=== PATIENT | female | born 1950 | race African-American/Black ===

== ENCOUNTER 2017-07-06 08:49 | Emergency (ER) | payer MEDICARE, MEDICAID ==
[~2017-07-06] VITALS: Ht 167.6 cm; Wt 72.6 kg
[2017-07-06] MEDS ORDERED: AUGMENTIN 875-1 EAC1 ORAL (09:04)
[2017-07-06] MEDS ORDERED: Tetanus/Diptheria/Pertussis Vaccine 0.5ml Syr IM ONE (09:15)
[2017-07-06] MEDS ORDERED: Lidocaine 1% Plain 30 ml INJ ONE (09:15)
--- NOTE | 2017-07-06 09:45 | Emergency Room Report ---
History of Present Illness General Chief Complaint: Animal Bite Source: Patient Present Illness HPI 66-year-old female p/w laceration after a dog bit her. sustained when was walking this morning, neighbors or walking her Mal[place]ian granda, [place] Granda bit patient in left leg, unprovoked. Patient states that this is a domestic dog which she has seen many times, states that she is sure patient is up-to- date with repeats that she can go home and check to make sure. She has been ambulatory. no other complaints. Tdap is not up-to-date Allergies: Coded Allergies: No Known Allergies (Unverified , 07/06/17) Patient History Past Medical History: see triage record Past Surgical History: none Pertinent Family History: none Last Menstrual Period: menopause Reviewed Nursing Documentation: PMH: Agreed, PSxH: Agreed Nursing Documentation-PMH Past Medical History: No Stated History Review of Systems All Other Systems: negative except mentioned in HPI Physical Exam Vital Signs Date Time Temp Pulse Resp B/P (MAP) Pulse Ox O2 Delivery O2 Flow Rate FiO2 07/06/17 08:53 98.1 87 18 157/88 96 Room Air Sp02 EP Interpretation: reviewed, normal General Appearance: normal inspection, well appearing, no apparent distress, alert, GCS 15, non-toxic Head: normocephalic, atraumatic Eyes: bilateral eye normal inspection, bilateral eye PERRL, bilateral eye EOMI ENT: normal ENT inspection, normal pharynx, normal voice, moist mucus membranes Neck: normal inspection, full range of motion, supple Respiratory: normal inspection, lungs clear, normal breath sounds, no respiratory distress, no retraction, no wheezing, speaking full sentences, chest symmetrical Cardiovascular #1: normal inspection, regular rate, rhythm, no edema, normal capillary refill Cardiovascular #2: 2+ radial (R), 2+ radial (L) Gastrointestinal: normal inspection, non tender, soft, non-distended, no guarding Musculoskeletal: back normal, normal range of motion, non-tender, other - Left leg with 3 separate linear wound lacerations. Anterior has a 7 cm linear laceration, hind leg has 2 lacerations, one measuring 4 cm one measuring 8 cm Neurologic: normal inspection, alert, oriented x3, responsive, motor strength/ tone normal, sensory intact, normal gait, speech normal Psychiatric: normal inspection, judgement/insight normal, memory normal Skin: normal color, no rash, warm/dry, well hydrated, normal turgor Procedures Laceration/Wound Repair Laceration/Wound Repair : Consent: Verbal Wound Location: lower extremity Wound's Depth, Shape: superficial Wound Length (cm): 10 Wound Explored: clean Irrigated w/ Saline (ccs): 500 Betadine Prep?: Yes Anesthesia: 1% Lidocaine Volume Anesthetic (ccs): 10 Wound Repaired With: sutures Suture Size/Type: 4:0 Number of Sutures: 19 Layer Closure?: Yes Sterile Dressing Applied?: Yes Splint Applied?: No Sling Applied?: Yes Patient Tolerated: Well Complications: None Progress Patient had 4 separate linear lacerations. 2 in the posterior leg measuring 4 cm and 7 cm, also had one in the anterior leg which was 8 cm Medical Decision Making Diagnostic Impression: Primary Impression: Laceration Additional Impression: Dog bite of extremity ER Course 66-year-old female with dog bite sustained lacerations to left leg No rabies vaccine indicated, it is a domestic dog, her neighbors dog Plan Wound repair, Elieser to, discharged with antibiotics ER course: Laceration repaired, sterile dressing applied. Tdap given. Disposition: Patient will be discharged home. Patient instructed to take antibiotics Patient instructed to return to her primary care doctor in 3-4 days for wound recheck Strict return precautions discussed with patient such as fever, chills, increasing bleeding to site, purulent drainage, rapid swelling or redness to area. Patient verbalizes understanding. Patient sis informed of inevitable scar that will result from laceration despite repair. Pt instructed to avoid sun exposure to decrease the appearance of scar. Patient instructed to return to ED or their primary care doctor in 14 days for removal of sutures. Patient agrees with plan. Please note that this Emergency Department Report was dictated using [employer] inspector technology software, occasionally this can lead to erroneous entry secondary to interpretation by the dictation equipment Last Vital Signs Date Time Temp Pulse Resp B/P (MAP) Pulse Ox O2 Delivery O2 Flow Rate FiO2 07/06/17 08:53 98.1 87 18 157/88 96 Room Air Disposition: HOME, SELF-CARE Condition: Improved Scripts Amoxicillin/Potassium Clav 875-125* (AUGMENTIN 875-125 TABLET*) 1 Each Tablet 1 TAB ORAL TWICE A DAY for 7 Days, #14 TAB 0 Refills Prov: Petey Mueller M.D. 07/06/17 Referrals: NOT CHOSEN [facility]/,REFERRING (PCP) Patient Instructions: Animal Bite, [id number], Laceration Care, Adult Additional Instructions: Please follow up with your primary care doctor or emergency room in 3 days without fail for wound recheck Please take your prescription medication as directed. Please come back to the emergency room immediately if you are having severe/ worsening pain, rapid spread of rash, inability to move leg, high fever or chills Petey Mueller M.D. Jul 06, 2017 09:45
[2017-07-06 10:05] VITALS: BP 161/73
== END 2017-07-06 10:09 | disposition home or self-care (01) ==
LOC: EMR 09:21
DX: S81.812A Laceration without foreign body, left lower leg, initial encounter (principal); W54.0XXA Bitten by dog, initial encounter; Y93.01 Activity, walking, marching and hiking; Y92.89 Other specified places as the place of occurrence of the external cause; Z23 Encounter for immunization
CPT/HCPCS: 12001; 90471; 90715; 99284; J2001

== ENCOUNTER 2017-07-09 10:04 | Emergency (ER) | payer MEDICARE, MEDICAID ==
[~2017-07-09] VITALS: Ht 167.6 cm; Wt 74.8 kg
[~2017-07-09 10:04] MED LIST: AUGMENTIN 875-1 EAC1 ORAL
[2017-07-09] MEDS ORDERED: AUGMENTIN 875-1 EAC1 ORAL (10:19)
[2017-07-09 10:20] VITALS: BP 151/83
[2017-07-09 10:32] VITALS: BP 151/83
--- NOTE | 2017-07-09 11:41 | Emergency Room Report ---
History of Present Illness General Chief Complaint: Animal Bite Source: Patient Present Illness HPI 66-year-old patient, had dogbite with laceration repair 3 days ago here for wound recheck Patient states that she still has some mild pain, however no fever or chills but of rash or purulent drainage. Allergies: Coded Allergies: No Known Allergies (Unverified , 07/06/17) Patient History Past Medical History: see triage record Past Surgical History: none Pertinent Family History: none Last Menstrual Period: na Reviewed Nursing Documentation: PMH: Agreed, PSxH: Agreed Nursing Documentation-PMH Past Medical History: No Stated History Review of Systems All Other Systems: negative except mentioned in HPI Physical Exam Vital Signs Date Time Temp Pulse Resp B/P (MAP) Pulse Ox O2 Delivery O2 Flow Rate FiO2 07/09/17 10:10 99.1 85 18 151/83 98 Room Air Sp02 EP Interpretation: reviewed, normal General Appearance: normal inspection, well appearing, no apparent distress, alert, GCS 15, non-toxic Head: normocephalic, atraumatic Eyes: bilateral eye normal inspection, bilateral eye PERRL, bilateral eye EOMI ENT: normal ENT inspection, normal pharynx, normal voice, moist mucus membranes Neck: normal inspection, full range of motion, supple Respiratory: normal inspection, lungs clear, normal breath sounds, no respiratory distress, no retraction, no wheezing, speaking full sentences, chest symmetrical Cardiovascular #1: normal inspection, regular rate, rhythm, no edema, normal capillary refill Cardiovascular #2: 2+ radial (R), 2+ radial (L) Gastrointestinal: normal inspection, non tender, soft, non-distended, no guarding Musculoskeletal: normal inspection, back normal, normal range of motion, non- tender Neurologic: normal inspection, alert, oriented x3, responsive, motor strength/ tone normal, sensory intact, normal gait, speech normal Psychiatric: normal inspection, judgement/insight normal, memory normal Skin: warm/dry, well hydrated, normal turgor, other - Well-healing laceration with sutures in place left lower leg, mildly tender to palpation, no purulent drainage, no crepitus, no wound dehiscence Medical Decision Making Diagnostic Impression: Primary Impression: Encounter for wound re-check Additional Impression: Dog bite of extremity ER Course 66-year-old female here for wound recheck, dog bite sustained 3 days ago DDX: Dog bite with laceration healing well Plan: None in the emergency room ER course: Patient ambulatory, nontoxic Disposition: Patient is discharged to home, instructed to followup with the emergency room or primary care doctor in 12 days for suture removal, instructed to continue taking her Augmentin Please note that this Emergency Department Report was dictated using [employer] crew member technology software, occasionally this can lead to erroneous entry secondary to interpretation by the dictation equipment. Last Vital Signs Date Time Temp Pulse Resp B/P (MAP) Pulse Ox O2 Delivery O2 Flow Rate FiO2 07/09/17 10:20 99.1 86 18 151/83 98 Room Air Disposition: HOME, SELF-CARE Condition: Stable Referrals: NOT CHOSEN IPA/,REFERRING (PCP) Patient Instructions: Animal Bite Additional Instructions: PLEASE FOLLOW UP YOUR DOCTOR OR EMERGENCY ROOM IN 12 DAYS FOR SUTURE REMOVAL PLEASE COME BACK TO THE EMERGENCY ROOM IF YOU HAVE RAPID SPREAD OF RASH, YELLOW DRAINAGE, FEVER OR CHILLS Petey Mueller M.D. Jul 09, 2017 11:41
== END 2017-07-09 11:49 | disposition home or self-care (01) ==
LOC: EMR 10:26
DX: S81.812D Laceration without foreign body, left lower leg, subsequent encounter (principal); W54.0XXD Bitten by dog, subsequent encounter
CPT/HCPCS: 99282

== ENCOUNTER 2017-07-23 09:23 | Emergency (ER) | payer MEDICARE, MEDICAID ==
[~2017-07-23] VITALS: Ht 170.2 cm; Wt 72.6 kg
[2017-07-23] MEDS ORDERED: NKM (09:30)
--- NOTE | 2017-07-23 09:53 | Emergency Room Report ---
History of Present Illness General Chief Complaint: Wound Recheck/Suture Removal Source: Patient Present Illness HPI Patient presents with removal of sutures in her left leg Patient had a dog bite approximately 14 days ago Finished her antibiotics Denies any swelling or discharge Denies any fevers or chills Patient has not seen her primary physician and presents for evaluation and removal of stitches Allergies: Coded Allergies: No Known Allergies (Unverified , 07/06/17) Patient History Past Medical History: see triage record Pertinent Family History: none Reviewed Nursing Documentation: PMH: Agreed, PSxH: Agreed Nursing Documentation-PMH Hx Cardiac Problems: No Review of Systems All Other Systems: negative except mentioned in HPI Physical Exam Vital Signs Date Time Temp Pulse Resp B/P (MAP) Pulse Ox O2 Delivery O2 Flow Rate FiO2 07/23/17 09:26 98.8 83 16 171/90 98 Room Air Sp02 EP Interpretation: reviewed, normal General Appearance: well appearing, no apparent distress Head: normocephalic, atraumatic Eyes: bilateral eye PERRL, bilateral eye EOMI ENT: no angioedema Cardiovascular #1: regular rate, rhythm Musculoskeletal: normal inspection Neurologic: normal inspection, alert, oriented x3, responsive Skin: other - Sutures in place, there are what appeared to be local reaction just at the suture sites but no obvious other fluctuance no obvious abscess the area in question appeared to be healing well there are sutures in the anterior and posterior aspect, Lymphatic: no adenopathy Procedures Laceration/Wound Repair Progress There are sutures in the anterior aspect of the left leg, these are removed without any incidents, sutures in the posterior calf also removed without any incidents patient tolerated the procedure well no obvious dehiscence, Medical Decision Making Diagnostic Impression: Primary Impression: Encounter for wound re-check Additional Impression: Encounter for removal of sutures ER Course Patient had sutures removed as noted There appeared to be local reaction from the sutures but no obvious fluctuance or abscess and the patient will have close followup Last Vital Signs Date Time Temp Pulse Resp B/P (MAP) Pulse Ox O2 Delivery O2 Flow Rate FiO2 07/23/17 09:26 98.8 83 16 171/90 98 Room Air Status: improved Disposition: HOME, SELF-CARE Condition: Improved Referrals: NOT CHOSEN IPA/MD,REFERRING (PCP) Patient Instructions: Wound Check, Suture Removal, Care After Additional Instructions: Patient is provided with the discharge instructions notified to follow up with primary doctor in the next 2-3 days otherwise return to the er with any worsening symptoms. Please note that this report is being documented using [employer] technology. This can lead to erroneous entry secondary to incorrect interpretation by the dictating instrument. LISS RIVAS D.O. Jul 23, 2017 09:53
[2017-07-23 10:00] VITALS: BP 157/53
== END 2017-07-23 10:00 | disposition home or self-care (01) ==
LOC: EMR 09:43
DX: S81.812D Laceration without foreign body, left lower leg, subsequent encounter (principal)
CPT/HCPCS: 99281